=== PATIENT | female | born 1990 | race Caucasian/White ===

== ENCOUNTER 2022-06-16 23:15 | Emergency (ER) | payer MEDICAID, OTHER ==
[~2022-06-16] VITALS: Ht 149.9 cm; Wt 68.0 kg
[2022-06-16 23:37] VITALS: BP 107/66
--- NOTE | 2022-06-16 23:50 | NUR ---
TO LOBBY FOLLOWING TRIAGE. UA OBTAINED
[2022-06-16] MEDS ORDERED: CEPH-588 PO ×2 (23:55→23:56)
[2022-06-17 03:45] VITALS: BP 107/66
== END 2022-06-17 03:45 | disposition home or self-care (01) ==
LOC: MED 23:15
DX: R30.0 Dysuria (principal); Z79.899 Other long term (current) drug therapy
CPT/HCPCS: 36415; 81002; 81025; 84702; 99283